=== PATIENT | male | born 2000 | race Two or more races ===

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

== ENCOUNTER 2023-10-25 14:44 | Emergency (ER) | payer BC, MEDICAID ==
[~2023-10-25] VITALS: Ht 182.9 cm; Wt 77.1 kg
[2023-10-25 14:44] VITALS: BP 134/68; TEMP 98.2; O2SAT 99
[2023-10-25] MEDS: ACETAMINOPHEN ES 500 MG TABLET PO ONE (15:30)
[2023-10-25] MEDS ORDERED: ACETAMINOPHEN ES 500 MG TABLET ONE (16:33)
== END 2023-10-25 16:35 | disposition home or self-care (01) ==
LOC: ER 14:44
DX: S62.614A Displaced fracture of proximal phalanx of right ring finger, initial encounter for closed fracture (principal); Z88.6 Allergy status to analgesic agent; W22.01XA Walked into wall, initial encounter; Y93.89 Activity, other specified; Y92.89 Other specified places as the place of occurrence of the external cause; Y99.8 Other external cause status
CPT/HCPCS: 73130-TC

== ENCOUNTER 2025-03-15 15:47 | Emergency (ER) | payer BC ==
[~2025-03-15] VITALS: Ht 180.3 cm; Wt 74.8 kg
[2025-03-15] MEDS ORDERED: ACETAMINOPHEN ES 500 MG TABLET ONE (18:30)
[2025-03-15] MEDS ORDERED: CYCLOBENZAPRINE 10 MG TABLET ONE (18:30)
[2025-03-15] MEDS ORDERED: LIDOCAINE 5% (PATCH) 1 EA PATCH TP ONE (18:30)
[2025-03-15] MEDS: KETOROLAC TROMETHAMINE 15 MG/ML VIAL IM ONE (18:39)
[2025-03-15] MEDS: ACETAMINOPHEN ES 500 MG TABLET PO ONE (18:39)
[2025-03-15] MEDS: LIDOCAINE 5% (PATCH) 1 EA PATCH TP SCH (18:39)
[2025-03-15] MEDS: CYCLOBENZAPRINE 10 MG TABLET PO ONE (18:39)
[2025-03-15] MEDS ORDERED: LIDO30AD10 TP (19:12)
[2025-03-15] MEDS ORDERED: KETO10TA2 PO (19:12)
[2025-03-15] MEDS ORDERED: ACET-2030 PO (19:12)
[2025-03-15] MEDS ORDERED: CYCL10TA9 PO (19:12)
[2025-03-15 19:18] VITALS: BP 126/69; TEMP 98.3; O2SAT 99
== END 2025-03-15 19:18 | disposition home or self-care (01) ==
LOC: ER 15:47
DX: S39.012A Strain of muscle, fascia and tendon of lower back, initial encounter (principal); Z88.6 Allergy status to analgesic agent; Z88.7 Allergy status to serum and vaccine; W19.XXXA Unspecified fall, initial encounter; Y93.89 Activity, other specified; Y92.89 Other specified places as the place of occurrence of the external cause; Y99.8 Other external cause status

== ENCOUNTER → 2025-04-15 | Emergency (ER) | payer BC ==
[~2025-04-15] VITALS: Ht 180.3 cm; Wt 61.2 kg
[~2025-04-15] MED LIST: ACET-2030 PO; CYCL10TA9 PO; KETO10TA2 PO; LIDO30AD10 TP
[2025-04-15 22:47] VITALS: TEMP 98.4
[2025-04-15 23:00] VITALS: BP 147/93; O2SAT 97
== END | disposition left against medical advice (07) ==
LOC: ER 22:36
DX: H54.7 Unspecified visual loss (principal); R22.0 Localized swelling, mass and lump, head; Z53.21 Procedure and treatment not carried out due to patient leaving prior to being seen by health care provider